=== PATIENT | male | born 1950 | race Caucasian/White ===

== ENCOUNTER 2017-04-19 13:03 | Outpatient (RCR) | payer MEDICARE, SELFPAY | END 2017-04-19 13:04 | LOC: DC 13:03 | PROVIDERS: Family Provider Internal Medicine; PCP Internal Medicine; Visit Provider Nurse Practitioner | DX: E11.65 Type 2 diabetes mellitus with hyperglycemia (principal); Z71.3 Dietary counseling and surveillance | CPT/HCPCS: G0109 ==

== ENCOUNTER → 2020-03-04 07:51 | Outpatient (CLI) | payer MEDICARE, SELFPAY ==
--- NOTE | 2020-03-04 07:54 | US_ITS ---
STUDY: ABDOMINAL ULTRASOUND REASON FOR EXAM: Male, 69 years old. BLOATING TECHNIQUE: Transabdominal ultrasound was performed with real-time and static solano scale imaging. TECHNICAL QUALITY: Adequate. COMPARISON: None. FINDINGS: Liver: The liver measures 18.7 cm. There is increased echogenicity consistent with fatty infiltration. The bile ducts are within normal limits. There is hepatic color flow. The direction of portal flow is hepatopetal. There is no demonstrated mass lesion. Portal vein measurement: Gallbladder: Normal distended gallbladder. The gallbladder wall measures 2.8 mm. There is a negative sonographic Becker''s sign. There is no pericholecystic fluid. There is a solitary echogenic gallstone within the gallbladder. Common Bile Duct (C.B.D.): The common bile duct measures 5.1 mm. Pancreas: Normal size of the head, body and tail of the pancreas. There is increased echogenicity of the pancreas. There is no demonstrated pancreatic mass or cyst. Spleen: Normal size of the spleen. The spleen measures 11.4 cm. Right Kidney: Normal size of the right kidney. The right kidney measures 10.6 x 5.4 x 6.2 cm. Normal renal cortex. The right cortex measures 1.9 cm. There is no demonstrated renal mass or cyst. There is no right hydronephrosis, there is a nonobstructing 5 mm stone Left Kidney: Normal size of the left kidney. The left kidney measures 11.2 x 4.6 x 5.4 cm. Normal renal cortex. The left cortex measures 2.0 cm. There is no demonstrated renal mass or cyst. There is no left hydronephrosis. Aorta: Tapers normally I.V.C.: The IVC is patent. There is no ascites. US/Abdomen Complete IMPRESSION: Diffuse fatty infiltration of the liver, no discrete lesion Cholelithiasis, no sonographic evidence of acute cholecystitis Nonobstructing right nephrolithiasis Echogenic pancreas Electronically Signed: Sae Nagel MD at 17:00 EST , Service support ,
== END ==
PROVIDERS: PCP Internal Medicine; Referring Provider Internal Medicine; Visit Provider Internal Medicine
DX: R14.0 Abdominal distension (gaseous) (principal)
CPT/HCPCS: 76700

== ENCOUNTER 2020-04-21 06:20 | Day surgery (SDC) | payer MEDICARE, SELFPAY ==
[2020-03-30 13:27] VITALS: BMI 34.9
[2020-04-21] VITALS (8 sets, daily range): BP systolic 92–132; BP diastolic 68–88; PULSE 70–87; RESP 16; TEMP 36.1–36.3; O2SAT 90–95; BMI 35.1
[2020-04-21] MEDS: Lactated Ringers 1,000 ML 100 ML IV (06:49)
--- NOTE | 2020-04-21 06:54 | PCM.HP.BLA ---
Problem List (1) Anemia Status: Acute Qualifiers: Anemia type: unspecified type Qualified Code(s): D64.9 - Anemia, unspecified (2) Upper abdominal pain Status: Acute History and Physical Date of Admission: 04/21/20 Intake Vital Signs 03/30/20 Height 6 ft 03/30/20 Weight: 257 lb 4 oz Intake Visit Reasons: PHONE VISIT, CSCOPE, ANEMIA, BLOATED ABDOMEN Chief Complaint: ANEMIA, ABD BLOATING, +GALLSTONES Strain Technician Required: No Is patient in pain?: No Allergies No Known Allergies Allergy (Verified 03/30/20 13:24) Medications amlodipine 5 mg tablet 5 mg PO DAILY tab 03/30/20 [History Confirmed 03/30/20] atorvastatin 10 mg tablet 10 mg PO QHS tab 03/30/20 [History Confirmed 03/30/20] empagliflozin 25 mg tablet 25 mg PO DAILY tab 03/30/20 [History Confirmed 03/30/20] glimepiride 4 mg tablet 4 mg PO BID tab 03/30/20 [History Confirmed 03/30/20] lisinopril 20 mg-hydrochlorothiazide 25 mg tablet 1 tab PO BID tab 03/30/20 [History Confirmed 03/30/20] metformin 500 mg tablet,extended release 24 hr 1,500 mg PO DAILY tab 03/30/20 [History Confirmed 03/30/20] omeprazole 40 mg capsule,delayed release 40 mg PO DAILY #60 cap 03/30/20 [Rx Confirmed 03/30/20] sitagliptin 100 mg tablet 100 mg PO DAILY tab 03/30/20 [History Confirmed 03/30/20] [facility] Medical History (Updated 03/30/20 @ 13:22 by Katina Reza) Anemia (Acute) Gallstones (Acute) Hypercholesteremia (Acute) Obesity (Acute) PVC (premature ventricular contraction) (Acute) CKD (chronic kidney disease) (Chronic) Surgical History (Updated 03/30/20 @ 13:22 by Katina Reza) History of mandibular surgery (Acute) Family History (Updated 03/30/20 @ 13:23 by Katina Reza) Father Heart disease Mother CVA (cerebral vascular accident) HPI HPI Chief Complaint: ANEMIA, ABD BLOATING, +GALLSTONES Details: Patient was informed that this visit will be billed to patient. This visit was conducted during COVID-19 pandemic. PHUONG VILLARREAL, is a 69 M who presents to the office today for Abdominal bloating and anemia. The patient reportedly has anemia and has never had a screening colonoscopy. He is also having a lot of abdominal bloating. Patient is not having any nausea or vomiting and he is not having any localized abdominal pain. He reports cutting dairy out of his diet but that did not help. He does not report any acid reflux and does not take a PPI. ROS Const Constitutional: Positive for fatigue; no anorexia, body ache, chills, excessive sweating, fever(s), frequent falls, headache(s), decreased energy, malaise, night sweats, snoring, weakness, weight change, sleep problems, abnormal sleep pattern, change in appetite or other Eyes Eyes: No visual disturbances ENT ENT: Positive for other (DM); no abnormal hearing, ear pain, ear discharge, ear pressure, hearing loss, tinnitus, dizziness/vertigo, balance problems, nosebleed/epistaxis, nasal congestion, nasal obstruction, nose pain, sinus pressure, sinus pain, nasal discharge, post nasal drip, headache(s), facial pain, dental pain, dry mouth, difficulty swallowing, bad breath, hoarseness, lip swelling, mouth lesions, mouth pain, neck pain, sore throat, tongue swelling or throat swelling Resp Respiratory: No cough, change in phlegm color, chest congestion, excessive phlegm production, hemoptysis, pain on inspiration, shortness of breath, pain with cough, snoring, stridor, wheezing or other Cardio Cardiology: Positive for other (PVC, HTN); no chest pain at rest, chest pain with exertion, leg pain with exertion, excessive sweating, shortness of breath, dyspnea on exertion, generalized swelling, irregular heart rhythm, lightheadedness, orthopnea, radiating jaw, neck or arm pain, fast heart rate, slow heart rate or palpitations Gastro GI: Positive for bloating; no abdominal pain, belching, change in bowel habits, change in stool character, coffee ground emesis, constipation, cramping, diarrhea, heartburn, difficulty swallowing, feeling full early, excessive flatus, incontinent of stools, Vomiting blood/hematemesis, blood in stool, loose stools, Black,tarry stools, nausea/dyspepsia, pain with swallowing, vomiting or other Musc Musculoskeletal: No abnormal walking, joint pain, back pain, deformity, joint swelling, limited range of motion, loss of height, muscle cramps, muscle weakness, decreased muscle mass, body aches, neck pain, numbness, radiating pain into limb, stiffness, tingling or other Neuro Neurology: No abnormal walking, abnormal hearing, abnormal movements, abnormal speech, behavioral changes, confusion, unsteady gait/balance, dizziness, weakness, frequent falls, headache(s), lack of coordination, loss of vision, memory loss, numbness, tingling, visual disturbances, restless legs, fainting, tremor(s) or other Psych Psychiatric: No abnormal sleep pattern, No lack of enjoyment, No anxiety, No behavioral changes, No change in appetite, No confusion, No depression, No difficulty concentrating, No hopelessness, No irritability, No memory loss, No mood swings, No panic attacks, No paranoia, No Thoughts of harming yourself/Others, No hallucinations, No other Endo Endocrine: Positive for fatigue and other (DM); no change in body appearance, cold intolerance, excessive sweating, flushing, heat intolerance, increased thirst/drinking, increased hunger or increased urination Aller/Imm Allergy/Immunologic: No lip swelling, throat swelling, tongue swelling or wheezing Antolin/Lymp Hematologic/Lymphatic: No easy bleeding, easy bruising, enlarged lymph nodes or other Exam Const General: cooperative, comfortable Chest Chest palpation & inspection: normal inspection of the chest Resp Effort & Inspection: normal respiratory effort Cardio Rate: regular rate Rhythm: regular rhythm GI Inspection: normal to inspection Palpation: soft, nontender Musc Musculoskeletal: No muscle weakness Details: Details:: Exam was limited due to phone visit with no video. Quality Reporting Medication Reconciliation ([facility] 68) amlodipine 5 mg PO DAILY atorvastatin 10 mg PO QHS empagliflozin 25 mg PO DAILY glimepiride 4 mg PO BID lisinopril-hydrochlorothiazide 20-25 mg 1 tab PO BID metformin ER 1,500 mg PO DAILY omeprazole 40 mg PO DAILY sitagliptin 100 mg PO DAILY Assessment & Plan Problems 1. Bloated abdomen R14.0 Plan The patient has abdominal bloating and feels full. The patient may be having gastritis or peptic ulcer disease symptoms. I recommend starting the patient on a PPI and I will perform an EGD and colonoscopy. The patient has anemia and is never had a colonoscopy in the past. If the PPI does not help in the EGD and colonoscopy are normal I will pursue laparoscopic cholecystectomy as the patient does have cholelithiasis. I explained endoscopy in detail to the patient. I explained the risks including but not limited to stroke or heart attack with anesthesia, perforation of the GI tract, bleeding, infection. I explained that any of these could necessitate further emergency surgery. The patient understands and all questions were answered sufficiently. The patient wishes to proceed with procedure. We discussed the current risks associated with COVID-19. While it is understood that there is a community spread of COVID-19, the risk of marci COVID-19 while at [facility] ([facility]) is very low; however, the risk cannot be completely mitigated because of the community spread of the disease. We discussed in detail the risk of exposure to and/or potential harm posed by the COVID-19 virus with having a surgery/procedure at this time versus the risk of delaying the surgery/procedure. It is not possible to know either the risk of delaying the surgery or procedure or chance of getting an infection with perfect accuracy, but a joint decision was made to proceed at this time with the scheduled surgery/procedure as indicated on the consent form. Patient was notified that we will need to comply with any screening or testing [facility] wishes to perform or that surgery may be delayed for any positive results. Bret Almendarez MD Pager: [facility] [address] [place] [address], [address] [place] [phone] Office: I have seen and reexamined the patient. no changes since prior exam.
[2020-04-21 07:06] LABS: Bedside Glucose 165 mg/dL (70-110)
--- NOTE | 2020-04-21 07:30 | IMM_PTH ---
PATIENT: PHUONG VILLARREAL LOC: EN U#:[id number] AGE/SX: 69/M ROOM: RE04/21/[address]: Dr. Bret Almendarez MD : 1950 BED: DIS: 04/21/2020 SPEC #: [id number] RECD: 04/21/20 10:40 STATUS: BOZENA REQ #: [id number] DAYANA: 04/21/20 07:[address]: Bret Almendarez DEPT: IMMUNOHISTOCHEMISTRY RECD BY: Madie Contreras ENTERED: 04/21/20 10:41 SP TYPE: IMMUNO OTHR DR: Dr. Leeanna Alex DO Tissues: A - Stomach, NOS Procedures: H Pylori (initial) PHYSICIAN & INSTITUTION [place] [address] SPECIMEN INFORMATION: Tissue Source: A - Antral biopsy Clinical Info: Abdominal pain, anemia Specimen Number: [id number] CPT code: 18204 METHODOLOGY: Deparaffinized sections of prefer/formalin-fixed tissue or PAP/DQ stained slides are incubated with monoclonal/polyclonal antibodies/oligonucleotide probes. Localization is made via biotin free immunoperoxidase method. Appropriate controls are performed and reacted as expected. Results on target cell population are indicated in the following table: RESULTS: ANTIBODY / CLONE RESULT Block A H Pylori (polyclonal) negative These tests were developed and their performance characteristics determined by [facility]. They may not have been cleared or approved by the U.S. Food and Drug Administration. The FDA has determined that such clearance or approval is not necessary. INTERPRETATION: A. Antral biopsy: Negative for Helicobacter pylori organisms. AM:jihan 04/22/2020
--- NOTE | 2020-04-21 07:30 | EGD_PTH ---
PATIENT: PHUONG VILLARREAL LOC: EN U#:[id number] AGE/SX: 69/M ROOM: RE04/21/[address]: Dr. Bret Almendarez MD : 1950 BED: DIS: 04/21/2020 SPEC #: [id number] RECD: 04/21/20 09:43 STATUS: BOZENA RESergio #: [id number] DAYANA: 04/21/20 07:[address]: Bret Almendarez DEPT: SURGICAL PATHOLOGY RECD BY: Yulissa Astudillo ENTERED: 04/21/20 10:21 SP TYPE: EGD BIOPSY OT DR: Dr. Leeanna Alex DO Tissues: A - Gastric mucous membrane B - Gastric mucous membrane C - Rectum, NOS Procedures: Special Stain Group II Surgery Specimen Level IV Alcian Blue/PAS (control) HEADER OPERATION: Colonoscopy, E[place] PRE-OP DIAGNOSIS: Abdominal pain, anemia TISSUE SUBMITTED: A - Antral biopsy for H. pylori and pathology, B - GE junction biopsy, C - Rectum polyp MICROSCOPIC DIAGNOSIS A. Gastric antrum, biopsy: Chronic gastritis. See comment. B. Gastroesophageal junction, biopsy: Mild chronic inflammation. Focal changes of reflux. No evidence of goblet cell metaplasia. See comment. C. Rectal polyp, biopsy: Tubular adenoma. AM:jihan 04/22/2020 COMMENT A. The results of immunohistochemistry for Helicobacter pylori will be reported separately ([id number]). B. Alcian blue/PAS stain with matched control supports the above diagnosis. MICROSCOPIC DESCRIPTION Slides are reviewed. GROSS DESCRIPTION A - Received in fixative is one container labeled with the patient's name and designated antral biopsy. The specimen consists of multiple irregular fragments of light bledsoe soft tissue that in aggregate measure 0.6 x 0.2 x 0.1 cm. The specimen is totally submitted in one cassette. B - Received in fixative is one container labeled with the patient's name and designated GE junction biopsy. The specimen consists of one irregular fragment of light bledsoe soft tissue that measures 0.3 x 0.3 x 0.1 cm. The specimen is totally submitted in one cassette. C - Received in fixative is one container labeled with the patient's name and designated rectum polyp. The specimen consists of a bledsoe-pink polyp measuring 0.5 x 0.5 x 0.3 cm. The specimen is totally submitted in one cassette. / SJ:rg 04/21/20 TC:3 CPT: 20483 x3, 28704
--- NOTE | 2020-04-21 07:53 | OP.CCLET_ITS ---
04/21/2020 Leeanna Alex [address] [place] [address] Re : Upper GI endoscopy procedure for Casimiro Rahman Dear Dr. Alex This procedure was performed on Tuesday, April 21, 2020. My impressions and recommendations are as follows: Impressions : - Non-severe reflux esophagitis. Biopsied. - Normal stomach. - Normal examined duodenum. - Biopsies were taken with a cold forceps for Helicobacter pylori testing. Recommendations : - Discharge patient to home. - Resume previous diet. - Continue present medications. - Await pathology results. - Return to my office in 1 week. My findings are described in the full procedure note, which is enclosed. If I can be of further assistance, please feel free to contact me at Doctor phone number(s): , Work: . Sincerely, Bret Almendarez MD 04/21/2020 7:52:35 AM This report has been signed electronically.
--- NOTE | 2020-04-21 07:53 | OP.EGD_ITS ---
Patient Name: Casimiro Rahman Procedure Date: 04/21/2020 7:01 AM Date of : 1950 Age: 69 Procedure: Upper GI endoscopy Indications: Upper abdominal pain, Iron deficiency anemia Providers: Bret Almendarez MD Referring MD: Leeanna Alex Medicines: Monitored Anesthesia Care Patient Profile: This is a 69 year old male. Refer to note in patient chart for documentation of history and physical. Complications: No immediate complications. Estimated blood loss: Minimal. Procedure: Pre-Anesthesia Assessment: - Prior to the procedure, a History and Physical was performed, and patient medications and allergies were reviewed. The patient's tolerance of previous anesthesia was also reviewed. The risks and benefits of the procedure and the sedation options and risks were discussed with the patient. All questions were answered, and informed consent was obtained. Prior Anticoagulants: The patient has taken no previous anticoagulant or antiplatelet agents. After reviewing the risks and benefits, the patient was deemed in satisfactory condition to undergo the procedure. After obtaining informed consent, the endoscope was passed under direct vision. Throughout the procedure, the patient's blood pressure, pulse, and oxygen saturations were monitored continuously. The Endoscope was introduced through the mouth, and advanced to the third part of duodenum. The upper GI endoscopy was accomplished without difficulty. The patient tolerated the procedure well. Scope In: 7:27:25 AM Scope Out: 7:29:50 AM Total Procedure Duration Time 0 hours 2 minutes 25 seconds Findings: Non-severe esophagitis with no bleeding was found at the gastroesophageal junction. Biopsies were taken with a cold forceps for histology. The stomach was normal. The examined duodenum was normal. Biopsies were taken with a cold forceps in the gastric antrum for Helicobacter pylori testing. Impression: - Non-severe reflux esophagitis. Biopsied. - Normal stomach. - Normal examined duodenum. - Biopsies were taken with a cold forceps for Helicobacter pylori testing. Recommendation: - Discharge patient to home. - Resume previous diet. - Continue present medications. - Await pathology results. - Return to my office in 1 week. Procedure Code(s): --- Professional --- 99671, Esophagogastroduodenoscopy, flexible, transoral; with biopsy, single or multiple Diagnosis Code(s): --- Professional --- K21.0, Gastro-esophageal reflux disease with esophagitis R10.10, Upper abdominal pain, unspecified D50.9, Iron deficiency anemia, unspecified CPT copyright 2017 [employer]. All rights reserved. The codes documented in this report are preliminary and upon fur weigher review may be revised to meet current compliance requirements. Bret Almendarez MD 04/21/2020 7:52:35 AM This report has been signed electronically. Number of Addenda: 0 Note Initiated On: 04/21/2020 7:01 AM
--- NOTE | 2020-04-21 07:54 | OP.CCLET_ITS ---
04/21/2020 Leeanna Alex [address] [place] [address] Re : Colonoscopy procedure for Casimiro Rahman Dear Dr. Alex This procedure was performed on Tuesday, April 21, 2020. My impressions and recommendations are as follows: Impressions : - One polyp in the rectum, removed with a hot snare. Resected and retrieved. - The examination was otherwise normal on direct and retroflexion views. Recommendations : - Discharge patient to home. - Resume previous diet. - Continue present medications. - Await pathology results. - Repeat colonoscopy in 5 years for surveillance. My findings are described in the full procedure note, which is enclosed. If I can be of further assistance, please feel free to contact me at Doctor phone number(s): , Work: . Sincerely, Bret Almendarez MD 04/21/2020 7:53:53 AM This report has been signed electronically.
--- NOTE | 2020-04-21 07:54 | OP.COLON_ITS ---
Patient Name: Casimiro Rahman Procedure Date: 04/21/2020 7:30 AM Date of : 1950 Age: 69 Procedure: Colonoscopy Indications: Screening for colorectal malignant neoplasm Providers: Bret Almendarez MD Referring MD: Leeanna Alex Medicines: Monitored Anesthesia Care Patient Profile: This is a 69 year old male. Refer to note in patient chart for documentation of history and physical. Last Colonoscopy: more than 10 years ago. Complications: No immediate complications. Procedure: Pre-Anesthesia Assessment: - Prior to the procedure, a History and Physical was performed, and patient medications and allergies were reviewed. The patient's tolerance of previous anesthesia was also reviewed. The risks and benefits of the procedure and the sedation options and risks were discussed with the patient. All questions were answered, and informed consent was obtained. Prior Anticoagulants: The patient has taken no previous anticoagulant or antiplatelet agents. After reviewing the risks and benefits, the patient was deemed in satisfactory condition to undergo the procedure. After I obtained informed consent, the scope was passed under direct vision. Throughout the procedure, the patient's blood pressure, pulse, and oxygen saturations were monitored continuously. The colonoscope was introduced through the anus and advanced to the cecum, identified by appendiceal orifice and ileocecal valve. The colonoscopy was performed without difficulty. The patient tolerated the procedure well. The quality of the bowel preparation was good. Scope In: 7:32:36 AM Scope Withdrawal Time 0 hours 5 minutes 34 seconds Scope Out: 7:46:26 AM Total Procedure Duration Time 0 hours 13 minutes 50 seconds Findings: A polyp was found in the rectum. The polyp was removed with a hot snare. Resection and retrieval were complete. Verification of patient identification for the specimen was done. Estimated blood loss was minimal. The exam was otherwise without abnormality on direct and retroflexion views. Impression: - One polyp in the rectum, removed with a hot snare. Resected and retrieved. - The examination was otherwise normal on direct and retroflexion views. Recommendation: - Discharge patient to home. - Resume previous diet. - Continue present medications. - Await pathology results. - Repeat colonoscopy in 5 years for surveillance. Procedure Code(s): --- Professional --- 12877, Colonoscopy, flexible; with removal of tumor(s), polyp(s), or other lesion(s) by snare technique Diagnosis Code(s): --- Professional --- Z12.11, Encounter for screening for malignant neoplasm of colon K62.1, Rectal polyp CPT copyright 2017 [employer] [place] [employer]. All rights reserved. The codes documented in this report are preliminary and upon product support specialist review may be revised to meet current compliance requirements. Bret Almendarez MD 04/21/2020 7:53:53 AM This report has been signed electronically. Number of Addenda: 0 Note Initiated On: 04/21/2020 7:30 AM
== END 2020-04-21 08:51 | disposition home or self-care (01) ==
LOC: EN 06:20 → AC 06:21
PROVIDERS: PCP Internal Medicine; Referring Provider Internal Medicine; Visit Provider Surgery
PROC: 0DJD8ZZ Inspection of Lower Intestinal Tract, Via Natural or Artificial Opening Endoscopic (ICD-10-PCS; CPT 45378; principal; 2020-04-21 07:25)
DX: Z12.11 Encounter for screening for malignant neoplasm of colon (principal); D12.8 Benign neoplasm of rectum; K21.00 Gastro-esophageal reflux disease with esophagitis, without bleeding; R10.10 Upper abdominal pain, unspecified; D50.9 Iron deficiency anemia, unspecified; Z79.84 Long term (current) use of oral hypoglycemic drugs; N18.9 Chronic kidney disease, unspecified; R14.0 Abdominal distension (gaseous)
CPT/HCPCS: 43239; 45385; 82962; 87426; 88305; 88313; 88342; C9803; J7120; J2405

== ENCOUNTER → 2020-05-04 10:17 | Outpatient (CLI) | payer MEDICARE, SELFPAY ==
[2020-04-21 06:49] VITALS: BMI 35.1
--- NOTE | 2020-05-04 10:18 | NM_ITS ---
CLINICAL: 69-year-old diabetic male with reported history of abdominal bloating. SEMI-SOLID PHASE 99m Tc SULFUR COLLOID GASTRIC EMPTYING STUDY COMPARISON: None available FINDINGS: The patient was administered approximately 1.0 mCi of 99m Tc sulfur colloid mixed with oatmeal and consumed per os. Image acquisitions in the anterior-posterior projections for a total of 60 minutes. There is prompt visualization of the stomach. There is no gastroesophageal reflux identified. The T ? linear fit was calculated to be 30.96 minutes, (Normal: 12-56 minutes). NM/Gastric Emptying Study IMPRESSION: 1. NORMAL 99m Tc sulfur colloid semi-solid phase (oatmeal) gastric emptying imaging examination. A. There is normal and preserved semi-solid phase gastric emptying compared to normal controls. (Victor M et al, J Nucl Med Tech 38: 186, 2010). Electronically Signed: Brant Kent DO at 22:27 EST Tel , Service support ,
== END ==
PROVIDERS: PCP Internal Medicine; Referring Provider Internal Medicine; Visit Provider Internal Medicine
DX: R14.0 Abdominal distension (gaseous) (principal)
CPT/HCPCS: 78264; A9541

== ENCOUNTER → 2020-05-25 14:48 | Outpatient (CLI) | payer MEDICARE, SELFPAY ==
[2020-05-18 09:17] VITALS: BMI 36.4
--- NOTE | 2020-05-25 14:50 | CT_ITS ---
STUDY: CT ABDOMEN AND PELVIS WITHOUT CONTRAST REASON FOR EXAM: Male, 69 years old. ABD PAIN AND BLOATING RADIATION DOSAGE (If Supplied By Facility): CTDIvol = ( 21.67 ) mGy, DLP = ( 1255.98 ) mGycm TECHNIQUE: Transaxial images were obtained from the dome of the diaphragm to the symphysis pubis without oral contrast, and without intravenous contrast. Sagittal and coronal images were reconstructed. Individualized dose optimization techniques were used for this CT. COMPARISON: None. FINDINGS: Mild degree of bibasilar bronchiectasis. The visualized portions of the heart are within normal limits. Normal liver. There are multiple small gallstones. Normal spleen. Normal pancreas. Normal bilateral adrenal glands. Normal right kidney. Normal left kidney. There is a small hiatal hernia. Normal small intestine. There are multiple colonic diverticula consistent with diverticulosis. The appendix is visualized and appears normal. There is diffuse atherosclerotic calcification of the abdominal aorta and its major visceral branches, without a demonstrated aneurysm. Normal inferior vena cava. Normal retroperitoneum. Normal urinary bladder. There are prostatic calcifications. There is a small umbilical hernia containing fat. Small right inguinal hernia containing fat. There are diffuse degenerative changes of the visualized lumbar spine. CT/Abdomen/Pel W ORAL Cont Only IMPRESSION: Sigmoid diverticulosis. Multiple small gallstones. Electronically Signed: Jf Fritz MD at 15:49 EST , Service support ,
[2020-05-25 15:06] LABS: CREATININE FINGERSTICK 2.2 mg/dL (0.70-1.30)
== END ==
PROVIDERS: PCP Internal Medicine; Referring Provider Surgery; Visit Provider Surgery
DX: R10.10 Upper abdominal pain, unspecified (principal)
CPT/HCPCS: 74176

== ENCOUNTER → 2020-08-25 15:56 | Outpatient (CLI) | payer MEDICARE, SELFPAY ==
[2020-05-18 09:17] VITALS: BMI 36.4
--- NOTE | 2020-08-25 15:58 | RAD_ITS ---
STUDY: X-RAY - ABDOMEN/PELVIS REASON FOR EXAM: Male, 69 years old. ABDOMINAL PAIN TECHNIQUE: AP supine and upright views of the abdomen and pelvis. COMPARISON: CT scan 05/25/2020. FINDINGS: Normal visualized lung bases. There is an unremarkable bowel gas pattern. There is no demonstrated free abdominal air. There is cholelithiasis. The visualized liver, spleen and kidneys are grossly normal in size and morphology. Normal soft tissue structures. There are diffuse degenerative changes of the visualized lumbar spine. RAD/Abdomen Single View IMPRESSION: No definite acute or significant abnormality seen. Electronically Signed: Heladio Ca MD at 16:32 EDT , Service support ,
== END ==
PROVIDERS: PCP Internal Medicine; Referring Provider Internal Medicine Gastroenterology; Visit Provider Internal Medicine Gastroenterology
DX: R14.0 Abdominal distension (gaseous) (principal)
CPT/HCPCS: 74018

== ENCOUNTER → 2021-02-17 10:52 | Outpatient (CLI) | payer MEDICARE, SELFPAY ==
[2021-02-17 11:04] LABS: Potassium 5.2 mmol/L (3.5-5.1)
== END ==
PROVIDERS: PCP Internal Medicine; Visit Provider Internal Medicine
DX: E87.5 Hyperkalemia (principal)
CPT/HCPCS: 84132

== ENCOUNTER → 2021-02-22 15:06 | Outpatient (CLI) | payer MEDICARE, SELFPAY ==
[2021-02-22 17:52] LABS: Potassium 4.8 mmol/L (3.5-5.1)
== END ==
PROVIDERS: PCP Internal Medicine; Visit Provider Internal Medicine
DX: E87.5 Hyperkalemia (principal)
CPT/HCPCS: 84132

== ENCOUNTER 2021-06-09 14:54 | Outpatient (CLI) | payer MEDICARE, SELFPAY ==
[2021-06-09 15:27] LABS: Potassium 4.9 mmol/L (3.5-5.1)
== END 2021-06-09 23:59 | disposition home or self-care (01) ==
LOC: LABSPEC 14:55
PROVIDERS: PCP Internal Medicine; Visit Provider Internal Medicine
DX: E87.5 Hyperkalemia (principal)
CPT/HCPCS: 84132

== ENCOUNTER 2021-07-19 15:11 | Outpatient (CLI) | payer MEDICARE, SELFPAY ==
[2021-07-19 15:34] VITALS: BP 131/85; PULSE 91; RESP 16; TEMP 37.3; O2SAT 92; BMI 35.6
--- NOTE | 2021-07-19 16:40 | CT_ITS ---
STUDY: CTA CHEST REASON FOR EXAM: Male, 70 years old. ELEVATED DDIMER Radiation Dose (provided by facility) CTDIvol (NA ) mGy, DLP ( NA) mGy-cm TECHNIQUE: The examination was performed with the intravenous administration of IV 100mL Isovue-370. Post-processing of the angiographic images was performed, with multiplanar reformation and 3D reconstruction. Individualized dose optimization techniques were used for this CT. COMPARISON: None. FINDINGS: Tubes and lines: 1. No life-support noted. CTA: PULMONARY ARTERIES: There is normal configuration and contrast opacification of pulmonary outflow tract, main pulmonary arteries, segmental and intersegmental pulmonary arteries bilaterally without evidence of intraluminal filling defects. AORTIC ARCH: Aortic arch has normal configuration, scattered areas of bulky soft plaque and subtle areas of ulceration suspected. No dissection or aneurysmal dilatation. Normal appearance of the origin of the great vessels. HEART: Cardiac contour is normal. No evidence pericardial effusion. Moderate coronary vascular calcifications present. CT CHEST: LUNGS: [Unremarkable. No mass. No consolidation. PLEURAL SPACES: Unremarkable, no effusion or pneumothorax.. MEDIASTINUM AND LYMPH NODES: Multiple scattered lymph nodes are present within the mediastinum or hilar regions, largest is in the RIGHT hilum measuring 2.1 x 1.1 cm in size.. BONES: Unremarkable. Diffuse thoracic spondylosis is noted. No acute destructive bony process. ABDOMEN: Cholelithiasis noted. Remaining visualized upper abdomen has normal appearance. Other: None IMPRESSIONS: 1. No CTA evidence of pulmonary embolism. 2. No CTA evidence of aortic aneurysm or dissection. Diffuse soft plaque noted throughout the aorta, scattered areas of ulceration noted. No dissection or aneurysmal dilatation. 3. Normal CT appearance of the heart and pericardium. Diffuse coronary vascular calcifications. 4. No focal infiltrate consolidation or effusion noted. Scattered noncalcified lymph nodes noted within the mediastinum and hilar regions bilaterally. 5. Cholelithiasis incidentally noted. Electronically Signed: Brant Bonilla MD at 17:32 EDT , CT/CTA Chest W/WO Contrast
== END 2021-07-19 23:59 | disposition home or self-care (01) ==
LOC: CT 15:11
PROVIDERS: PCP Internal Medicine; Visit Provider Internal Medicine
DX: R79.89 Other specified abnormal findings of blood chemistry (principal)
CPT/HCPCS: 71275; J7040

== ENCOUNTER 2021-07-19 15:13 | Outpatient (CLI) | payer MEDICARE, SELFPAY ==
[2021-07-19 10:49] LABS: Hematocrit 37.1 % (40-54); Hemoglobin 12.1 g/dL (13.0-16.5); Mean Corp Hgb Conc 32.6 g/dL (32-36); Mean Corpuscular Hgb 30.5 pg (27.0-32.0); Mean Corpuscular Volume 93.5 fL (80-94); Mean Platelet Vol. 10.7 fl (6.2-12.0); Platelet Count 243 K/mm3 (150-450); RBC Distribution Width CV 12.5 % (11.6-14.6); RBC Distribution Width SD 42.8 fl (35.1-43.9); Red Blood Count 3.97 M/mm3 (4.6-6.2); White Blood Count 9.6 K/mm3 (4.4-11.0)
[2021-07-19 11:15] LABS: AST(SGOT) 14 U/L (15-37); Alanine Aminotransfer ALT/SGPT 31 U/L (16-61); Albumin, Serum 3.8 g/dL (3.2-5.0); Alkaline Phosphatase 43 U/L (45-117); Anion Gap 3 (5-15); BUN 45 mg/dL (7-18); BUN/Creat Ratio 18.2 RATIO (10-20); Calcium,Total 9.4 mg/dL (8.5-10.1); Chloride 108 mmol/L (98-107); Creatinine, Serum 2.47 mg/dL (0.70-1.30); EST Glomerular Filtration Rate 28 mL/min (>60); Est Glom Filt Rate - Afr Amer 33 mL/min (>60); Globulin 3.9 g/dL (2.2-4.2); Glucose 191 mg/dL (74-106); Potassium 5.3 mmol/L (3.5-5.1); Protein, Total 7.7 g/dL (6.4-8.2); Sodium Level 140 mmol/L (136-145)
[2021-07-19 12:51] LABS: D-Dimer Quantitative (DVT/PE) 0.89 FEU/ug/m (0.27-0.49)
--- NOTE | 2021-07-19 15:28 | US_ITS ---
INDICATION: CHRONIC KIDNEY DISEASE EXAMINATION: Ultrasound US Kidney(s) complete (eg, kidneys and bladder) TECHNIQUE: Mejia scale and color doppler images were obtained of the kidneys. COMPARISON: None. FINDINGS: RIGHT KIDNEY: 10.4 x 5.6 x 5.1 cm. There is no hydronephrosis. No shadowing calculus, focal lesion or perinephric collection is demonstrated. Renal cortex measures 1.5 cm. LEFT KIDNEY: 10.2 x 4.9 x 4.8 cm.. There is no hydronephrosis. No shadowing calculus, focal lesion or perinephric collection is demonstrated. Renal cortex measures 1.1 cm. URINARY BLADDER: Bladder has normal configuration. Distended volume estimated at 308 mL. Ureteral jets are not visualized. Bladder wall has normal appearance. US/Kidney and Bladder IMPRESSION: 1. Normal sonographic appearance of both kidneys without solid or cystic masses, calcifications or obstructive uropathy. 2. Bladder is moderately distended with a volume of 308 mL. 3. Ureteral jets are not visualized. Bladder wall is normal appearance. Electronically Signed: Brant Bonilla MD at 1:48 EDT ,
== END 2021-07-19 23:59 | disposition home or self-care (01) ==
LOC: US 15:14
PROVIDERS: PCP Internal Medicine; Visit Provider Internal Medicine
DX: N18.30 Chronic kidney disease, stage 3 unspecified (principal); R09.02 Hypoxemia
CPT/HCPCS: 71275; 76770; 80053; 85027; 85379; J7040

== ENCOUNTER 2021-07-23 11:43 | Outpatient (CLI) | payer MEDICARE, SELFPAY ==
[2021-07-23 12:03] LABS: Anion Gap 10 (5-15); BUN 37 mg/dL (7-18); BUN/Creat Ratio 17.5 RATIO (10-20); Chloride 108 mmol/L (98-107); Creatinine, Serum 2.12 mg/dL (0.70-1.30); EST Glomerular Filtration Rate 33 mL/min (>60); Est Glom Filt Rate - Afr Amer 40 mL/min (>60); Glucose 213 mg/dL (74-106); Potassium 4.8 mmol/L (3.5-5.1); Sodium Level 138 mmol/L (136-145)
== END 2021-07-23 23:59 | disposition home or self-care (01) ==
LOC: LABSPEC 11:44
PROVIDERS: PCP Internal Medicine; Referring Provider Internal Medicine; Visit Provider Internal Medicine
DX: E87.5 Hyperkalemia (principal)
CPT/HCPCS: 80048

== ENCOUNTER → 2021-07-27 | Outpatient (CLI) | payer MEDICARE, SELFPAY ==
[2021-07-27 09:22] VITALS: PULSE 105; PULSE 69; PULSE 83; PULSE 91; PULSE 95; PULSE 97; PULSE 98; O2SAT 88; O2SAT 89; O2SAT 92; O2SAT 94; O2SAT 95
--- NOTE | 2021-07-27 09:29 | CPS ---
HE TOLD ME THAT HE IS TO WEAR O2 AT HOME BU USUALLY DOESN'T. UPON ARRIVAL SPO2 WAS 95% BEFORE HE STARTED TO WALK.
--- NOTE | 2021-07-28 08:22 | PCM.PSN.6M ---
PSN 6 Minute Walk Test 6 Minute Walk Test 6 Minute Walk Test: 6 Minute Walk Test PSN:6-Minute Walk Test Start: 07/27/21 09:21 Freq: Status: Active Protocol: [id number] Document 07/27/21 09:22 FR (Rec: 07/27/21 09:32 FR [id number]) 6 Minute Walk Test Date Performed 07/27/21 Time Performed 08:30 Height 6 ft Weight: 119.295 kg Weight in Pounds 263.[address]: Dre Morocho Assistive device used: None Pre-test Oxygen Flow Rate (L/min) (L/min) 2 Oxygen Delivery Method Nasal Cannula Pulse Ox (%) 95 Pulse Rate (60-100 beats/min) 69 Dyspnea Alejandro Scale (0-10) 8 Exertion Alejandro Scale (6-20) 6 1st minute Oxygen Flow Rate (L/min) (L/min) 2 Pulse Ox (%) 92 2nd minute Oxygen Flow Rate (L/min) (L/min) 2 Oxygen Delivery Method Nasal Cannula Pulse Ox (%) 89 Pulse Rate (60-100 beats/min) 91 3rd minute Oxygen Flow Rate (L/min) (L/min) 2 Oxygen Delivery Method Nasal Cannula Pulse Ox (%) 89 Pulse Rate (60-100 beats/min) 97 4th minute Oxygen Flow Rate (L/min) (L/min) 2 Pulse Ox (%) 88 Pulse Rate (60-100 beats/min) 98 5th minute Oxygen Flow Rate (L/min) (L/min) 2 Oxygen Delivery Method Nasal Cannula Pulse Ox (%) 88 Pulse Rate (60-100 beats/min) 105 H 6th minute Oxygen Flow Rate (L/min) (L/min) 2 Oxygen Delivery Method Nasal Cannula Pulse Ox (%) 88 Pulse Rate (60-100 beats/min) 95 Dyspnea Alejandro Scale (0-10) 8 Exertion Alejandro Scale (6-20) 6 Post-test Oxygen Flow Rate (L/min) (L/min) 2 Oxygen Delivery Method Nasal Cannula Pulse Ox (%) 94 Pulse Rate (60-100 beats/min) 83 Full Laps Walked 9 Partial Lap, Number of Tiles Walked 39 Total Distance Walked (ft) 570 07/27/21 09:29 Cardiopulmonary Services by Iveth Nagel HE TOLD ME THAT HE IS TO WEAR O2 AT HOME BU USUALLY DOESN'T. UPON ARRIVAL SPO2 WAS 95% BEFORE HE STARTED TO WALK. Initialized on 07/27/21 09:29 - END OF NOTE Interpretation Interpretation: The patient ambulated 570 feet over the course of 6 minutes beginning on room air without assistive devices. Pretesting oxygen saturation was noted to be 86% on room air. The patient was placed on 2 L/min of oxygen to begin the test. With ambulation, the jian oxygen saturation was 88% on 2 L/min. Recommendations Recommendations: 2 L/min of supplemental oxygen should be utilized at rest. 3 L/min should be utilized with exertion.
== END | disposition home or self-care (01) ==
LOC: PSN 08:26
PROVIDERS: PCP Internal Medicine; Referring Provider Internal Medicine Critical Care Medicine; Visit Provider Internal Medicine Critical Care Medicine
DX: R09.02 Hypoxemia (principal); R06.02 Shortness of breath
CPT/HCPCS: 94618

== ENCOUNTER → 2021-08-03 | Outpatient (CLI) | payer MEDICARE, SELFPAY ==
--- NOTE | 2021-08-03 13:32 | PFTCOMP ---
COMPLETE PULMONARY FUNCTION TEST INTERPRETATION Brief HPI: Patient is a 70 year old male, currently under the care of Dr. Morocho, who presents to [facility] for complete pulmonary function tests secondary to diagnosis of hypoxemia. Respiratory therapist reports good effort and reproducible results. Interpretation: Forced expiration spirometry shows no large airways obstructive ventilatory defect with an FEV1 of 104% predicted. There is no significant bronchodilator response by strict ATS criteria. Spirograms are of good quality and plateau normally. The respiratory flow volume loop shows a normal pattern. Lung volumes by body plethysmography show a normal total lung capacity at 6.93 L, 100% predicted. All other lung volumes are within normal limits. Diffusion capacity by carbon monoxide is decreased at 66% predicted. The airway resistance is normal. No previous pulmonary function tests were available for review. Impression: Isolated reduction in diffusion capacity with relatively preserved lung volumes and spirometry, and a pattern consistent with pulmonary vascular disease.
== END | disposition home or self-care (01) ==
LOC: PSN 09:58
PROVIDERS: PCP Internal Medicine; Referring Provider Internal Medicine Critical Care Medicine; Visit Provider Internal Medicine Critical Care Medicine
DX: R09.02 Hypoxemia (principal); R06.02 Shortness of breath
CPT/HCPCS: 94060; 94726; 94729

== ENCOUNTER → 2021-08-04 | Outpatient (CLI) | payer MEDICARE, SELFPAY ==
--- NOTE | 2021-08-04 09:51 | ECHOCS_ITS ---
Reason For Study: DYSPNEA/SOB Procedure This was a 2D Doppler, Color Flow transthoracic echocardiogram. The study was technically difficult. Contrast injection was performed. Exam performed in department. Left Ventricle The echocardiographic and contrast enhanced images obtained there appears to be grossly normal left ventricular size, wall motion, and systolic function. The estimated ejection fraction is 55 %. No evidence for diastolic dysfunction. Right Ventricle Normal RV size. Normal systolic function. Atria Normal left atrium. Normal right atrium. No doppler evidence for ASD. Bubble contrast study negative for right to left interatrial shunt. Mitral Valve There is no mitral annular calcification. Normal mitral valve. Trivial mitral valve insufficiency. Tricuspid Valve Normal tricuspid valve. Trivial tricuspid valve insufficiency. Right ventricular systolic pressure estimated to be 34 mmHg. Aortic Valve Trisinus/trileaflet aortic valve. Mild focal aortic valve calcification. Trivial aortic valve insufficiency. Pulmonic Valve The pulmonic valve is not well visualized. Trivial eccentric pulmonic valve insufficiency. Great Vessels Normal sized aortic root. Calcified aortic root. Pericardium/Pleural No pericardial effusion. Epicardial fat. Medication 22 gauge I.V. with prn adaptor inserted into right arm. Diluted definity 5ml given slow IV push to enhance endocardial definition. Performed a rapid injection of agitated mix of 9 cc saline and 1cc air to assess for atrial septal defect. MMode/2D Measurements & Calculations LVIDd: 5.5 cm IVSd: 1.3 cm Ao root diam: 3.8 cm LVIDs: 3.9 cm LVPWd: 1.1 cm RVDd: 4.5 cm FS: 28.9 % LAV(MOD-bp): 42.1 ml LVAd ap4: 53.3 cm2 LVAd ap2: 43.7 cm2 LAV(MOD-bp) Indexed: 17.7 ml/m2 LVLd ap4: 10.5 cm LVLd ap2: 9.1 cm LAV(MOD-sp2): 37.2 ml EDV(MOD-sp4): 221.8 ml EDV(MOD-sp2): 172.8 ml LAV(MOD-sp4): 42.0 ml EDV(sp4-el): 229.8 ml EDV(sp2-el): 177.6 ml LVAs ap4: 34.1 cm2 LVAs ap2: 28.5 cm2 LVLs ap4: 8.6 cm LVLs ap2: 7.8 cm ESV(MOD-sp4): 114.4 ml ESV(MOD-sp2): 84.2 ml ESV(sp4-el): 115.2 ml ESV(sp2-el): 88.1 ml EF(MOD-sp4): 48.4 % EF(MOD-sp2): 51.3 % EF(sp4-el): 49.9 % SV(MOD-sp4): 107.4 ml SV(MOD-sp2): 88.6 ml SV(sp4-el): 114.6 ml LA A4 area: 15.9 cm2 LA dimension(2D): 4.1 cm RA A4 area: 13.9 cm2 Time Measurements MV dec time: 0.19 sec Doppler Measurements & Calculations MV E max oren: 44.4 cm/sec Lat Peak E' Oren: 3.9 cm/sec Med Peak E' Oren: 3.7 cm/sec MV A max oren: 71.2 cm/sec E/E' lat: 11.4 E/E' med: 12.0 MV E/A: 0.62 Ao V2 max: 135.3 cm/sec LV V1 max: 100.9 cm/sec PA V2 max: 108.3 cm/sec Ao max P.3 mmHg LV V1 max P.1 mmHg TR max oren: 278.4 cm/sec TR max P.0 mmHg ECHO/Echo Complete W/ Contrast Interpretation Summary The study was technically difficult. Contrast injection was performed. The echocardiographic and contrast enhanced images obtained there appears to be grossly normal left ventricular size, wall motion, and systolic function. The estimated ejection fraction is 55 %. Trivial mitral valve insufficiency. Trivial tricuspid valve insufficiency. Mild focal aortic valve calcification. Trivial aortic valve insufficiency. Trivial eccentric pulmonic valve insufficiency. Calcified aortic root. Epicardial fat. Right ventricular systolic pressure estimated to be 34 mmHg. No evidence for diastolic dysfunction. Ordering Physician: Dre Morocho Referring Physician: PRAVEEN SCHULTE Performed By: Mary Bolye RDCS
== END | disposition home or self-care (01) ==
LOC: CVS 09:49
PROVIDERS: PCP Internal Medicine; Referring Provider Internal Medicine Critical Care Medicine; Visit Provider Internal Medicine Critical Care Medicine
DX: R06.00 Dyspnea, unspecified (principal); R06.02 Shortness of breath
CPT/HCPCS: 93306; Q9957; A4216; C8929

== ENCOUNTER → 2021-09-02 | Outpatient (CLI) | payer MEDICARE, SELFPAY | END | disposition home or self-care (01) | LOC: SL 20:25 | PROVIDERS: PCP Internal Medicine; Visit Provider Nurse Practitioner Acute Care | DX: G47.30 Sleep apnea, unspecified (principal); J47.9 Bronchiectasis, uncomplicated; R09.02 Hypoxemia | CPT/HCPCS: 95811 ==

== ENCOUNTER → 2021-11-08 | Outpatient (CLI) | payer MEDICARE, SELFPAY | END | disposition home or self-care (01) | LOC: SL 09:48 | PROVIDERS: PCP Internal Medicine; Visit Provider Nurse Practitioner Acute Care | DX: Z00.00 Encounter for general adult medical examination without abnormal findings (principal) ==

== ENCOUNTER 2021-12-08 09:36 | Outpatient (CLI) | payer MEDICARE, SELFPAY ==
--- NOTE | 2021-12-08 08:27 | EKG12_ITS ---
Test Reason : PRE OP Blood Pressure : / mmHG Vent. Rate : 057 BPM Atrial Rate : 057 BPM P-R Int : 188 ms QRS Dur : 110 ms QT Int : 416 ms P-R-T Axes : 055 -08 033 degrees QTc Int : 404 ms Sinus bradycardia Otherwise normal ECG Confirmed by ENEIDA LAUGHLIN, NERY ([id number]), video editor FADI FLOWER ([id number]) on 12/09/2021 8:14:24 AM Referred By: Hardy Corrales Confirmed By:NERY MONIQUE MD
[2021-12-08 09:45] LABS: Hematocrit 32.4 % (40-54); Hemoglobin 10.8 g/dL (13.0-16.5); Mean Corp Hgb Conc 33.3 g/dL (32-36); Mean Corpuscular Hgb 31.2 pg (27.0-32.0); Mean Corpuscular Volume 93.6 fL (80-94); Mean Platelet Vol. 11.2 fl (6.2-12.0); Platelet Count 237 K/mm3 (150-450); RBC Distribution Width CV 12.3 % (11.6-14.6); Red Blood Count 3.46 M/mm3 (4.6-6.2); White Blood Count 8.6 K/mm3 (4.4-11.0)
[2021-12-08 10:10] LABS: Hemoglobin A1c 12.8 % (3.8-5.6)
[2021-12-08 10:11] LABS: Anion Gap 6 (5-15); BUN 40 mg/dL (7-18); BUN/Creat Ratio 19.2 RATIO (10-20); Calcium,Total 9.3 mg/dL (8.5-10.1); Chloride 109 mmol/L (98-107); Creatinine, Serum 2.08 mg/dL (0.70-1.30); EST Glomerular Filtration Rate 33 mL/min (>60); Est Glom Filt Rate - Afr Amer 41 mL/min (>60); Glucose 277 mg/dL (74-106); Potassium 4.7 mmol/L (3.5-5.1); Sodium Level 139 mmol/L (136-145)
== END 2021-12-08 23:59 | disposition home or self-care (01) ==
LOC: PAT 01-06 09:36
PROVIDERS: Anesthesiology; PCP Internal Medicine; Referring Provider Surgery; Visit Provider Surgery
DX: Z01.818 Encounter for other preprocedural examination (principal); R00.1 Bradycardia, unspecified; Z53.9 Procedure and treatment not carried out, unspecified reason; Z01.812 Encounter for preprocedural laboratory examination; Z01.810 Encounter for preprocedural cardiovascular examination; Z79.899 Other long term (current) drug therapy
CPT/HCPCS: 36415; 80048; 83036; 85027; 93005

== ENCOUNTER 2022-03-24 05:50 | Day surgery (SDC) | payer MEDICARE, SELFPAY ==
--- NOTE | 2022-03-21 13:48 | EKG12_ITS ---
Test Reason : PRE OP Blood Pressure : / mmHG Vent. Rate : 106 BPM Atrial Rate : 106 BPM P-R Int : 192 ms QRS Dur : 106 ms QT Int : 348 ms P-R-T Axes : 058 -31 059 degrees QTc Int : 462 ms Sinus tachycardia with occasional Premature ventricular complexes Left axis deviation Abnormal ECG Confirmed by MARISOL LAUGHLIN, JAMEE ([id number]), news video editor FADI FLOWER ([id number]) on 03/22/2022 11:34:08 AM Referred By: Hardy Corrales Confirmed By:JAMEE DAMON MD
[2022-03-21 15:58] LABS: Hematocrit 33.9 % (40-54); Hemoglobin 11.3 g/dL (13.0-16.5); Mean Corp Hgb Conc 33.3 g/dL (32-36); Platelet Count 247 K/mm3 (150-450); RBC Distribution Width CV 12.3 % (11.6-14.6); RBC Distribution Width SD 43.2 fl (35.1-43.9); Red Blood Count 3.53 M/mm3 (4.6-6.2); White Blood Count 8.1 K/mm3 (4.4-11.0)
[2022-03-21 16:30] LABS: Anion Gap 7 (5-15); BUN 54 mg/dL (7-18); Calcium,Total 9.5 mg/dL (8.5-10.1); Chloride 107 mmol/L (98-107); Creatinine, Serum 2.45 mg/dL (0.70-1.30); EST Glomerular Filtration Rate 28 mL/min (>60); Est Glom Filt Rate - Afr Amer 34 mL/min (>60); Glucose 113 mg/dL (74-106); Potassium 4.4 mmol/L (3.5-5.1); Sodium Level 139 mmol/L (136-145)
[2022-03-21 16:53] LABS: Hemoglobin A1c 7.6 % (3.8-5.6)
[2022-03-24] VITALS (11 sets, daily range): BP systolic 96–122; BP diastolic 54–68; PULSE 63–92; RESP 12–32; TEMP 36.2–36.9; O2SAT 88–97; BMI 34.0
--- NOTE | 2022-03-24 06:39 | HP.PCM_ITS ---
History and Physical Date of Admission: 03/24/22 Allergies No Known Allergies Allergy (Verified 02/09/22 09:37) Medications amlodipine 5 mg tablet 5 mg PO DAILY 03/30/20 [History Confirmed 12/07/21] atorvastatin 10 mg tablet 10 mg PO QHS 03/30/20 [History Confirmed 12/07/21] empagliflozin 25 mg tablet 25 mg PO DAILY 03/30/20 [History Confirmed 12/07/21] budesonide 0.5 mg/2 mL suspension for nebulization (Pulmicort) 1.5 mg inhalation PRN PRN SOB 07/26/21 [History Confirmed 12/07/21] lisinopril 20 mg-hydrochlorothiazide 25 mg tablet 1 tab PO DAILY 10/13/21 [History Confirmed 12/07/21] tamsulosin 0.4 mg capsule (Flomax) 0.4 mg PO QHS #30 caps 12/06/21 [Rx Confirmed 12/07/21] insulin glargine 100 unit/mL (3 mL) subcutaneous pen 20 unit subcut QPM 02/09/22 [History Confirmed 02/09/22] PFSH Medical History? Anemia Arthritis BiPAP (biphasic positive airway pressure) dependence Bruising CKD (chronic kidney disease) Diabetes Enlarged prostate Gallstones High cholesterol History of echocardiogram Hypercholesteremia Hypertension Insulin dependent diabetes mellitus Kidney stones Obesity On home oxygen therapy PVC (premature ventricular contraction) Sleep apnea Wears glasses Surgical History? History of esophagogastroduodenoscopy (EGD) History of mandibular surgery Family History? Father Heart diseaseMother CVA (cerebral vascular accident) Social History? Smoking Status:? Former smoker pack-years: 2 how long ago did patient quit smoking:? 50 years ago alcohol intake:? never HPI HPI HPI: PHUONG VILLARREAL, is a 70 M who presents to the office today for an update history and physical for a laparoscopic right inguinal and umbilical hernia repair with mesh. Patient denies any recent hospitalizations or illnesses. Patient has been working with pulmonary since November 08 to assist with his sleep apnea. He has been compliant since November 08 with his Bipap machine. Prior to this, patient was refusing to wear the machine. Patient notes he is unable to to reduce his right groin hernia. He denies pain/discomfort at this site. He denies having COVID within the last 4 weeks. He denies any previous complications with anesthesia. He denies previous myocardial infarction or stroke. Patient denies any changes in bowel habits and is up multiple times per night urinating. Patient was scheduled in early December this year for the procedure. Patient's HgbA1C was 12.8 and surgery was canceled. Patient has since been evaluated by his PCP who has placed the patient on 24 units of insulin daily. Patient had a repeat HgbA1C on 02/04, which demonstrated 8.6. ? ? ? Patient's previous history per Dr. Corrales: PHUONG VILLARREAL, is a 70 M who presents to the office today for ongoing surgical evaluation of incidental gallstones and umbilical hernia and right inguinal hernia.? The patient's most recent pulmonary visit was October 13, [address] Dre Morocho.? It is apparent that the patient was recommended oxygen therapy as well as BiPAP therapy.? Apparently he has been noncompliant with both.? Because the patient's noncompliance he is felt to be at increased risk for postop pulmonary complication. 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 He is able to move about 10 baljit of hay before he has to stop and rest.? He only infrequently uses home oxygen.? States that its not convenient for him to try to carry it around the farm.? He d id decline the CPAP therapy. This is a patient I saw back on July 26, 2010. My previous notes reflect the following HPI: PHUONG VILLARREAL, is a 70 M who presents to the office today for surgical consu ltation regarding abdominal bloating.? Patient is being referred by Dr. Leeanna Alex and a written copy of my surgical consult recommendations will return to her.? On her visit to her he was noted to have a PO2 of 87% on room air.? Patient apparently is not on CPAP or oxygen at home.? The patient is noted to have gallstones on imaging.? He is being referred to see if there is a connection between that and his abdominal bloating.? Although the patient has abdominal bloating this is a constant event and is not related to eating.? He has no symptoms that would suggest biliary colic.? He does not really describe postprandial discomfort or discomfort in the right upper quadrant.? He just feels like he is bloated.? He is got no nausea or vomiting.? This is been ongoing for over a year. The patient has seen Dr. Dre Morocho and has upcoming testing regarding his pulmonary dysfunction.? He briefly smoked cigarettes when he was in the service.? He now has oxygen to use but he entered the office without He does have a new primary concern and that is a bulging and discomfort in the right groin.? It is of note that the CT scan of April 2020 demonstrated a small fat-containing right inguinal hernia.? However now this hernia is quite demonstrative. It is of note that Dr. Bret Almendarez assisted him on April 21, 2020 with an upper endoscopy because of upper abdominal pain and iron deficiency anemia.? Normal stomach.? Normal duodenum.? Biopsies showed chronic gastritis.? Mild reflux.? H. pylori was negative.? Colonoscopy performed the same day demonstrated a rectal polyp which was an adenoma.? No other acute findings. At the [facility] on May 25, [address] the patient [address] a CT scan of the abdomen pelvis.? Bibasilar bronchiectasis.? Small hiatal hernia.? Sigmoid diverticulosis.? Small umbilical hernia.? With fat small right inguinal hernia with fat multiple gallstones. On July 19, [address] of the chest because of the elevated D- dimer.? Diffuse soft plaque noted throughout the aorta. As of July 19, 2021 white blood cell count 9.6 and he will 12.1 medically 37.1 platelet count 243,000.? Glucose elevated at 191.? BUN elevated 45.? Creatinine elevated to 2.47.? Estimated GFR 28 consistent with stage IV chronic renal insufficiency.? Potassium was elevated at 5.3. Nonreducible right inguinal hernia.? Clearly this is progressed from his CT scan of a year ago.? It is quite sizable and remarkable.? Smaller umbilical hernia.? Also not reducible.? I recommend the patient a umbilical herniorrhaphy with mesh with a laparoscopic right inguinal herniorrhaphy with mesh.? I discussed technique, benefit, risk and alternatives.? Has had an opportunity ask and have questions answered. He has ongoing pulmonary evaluation.? We will schedule his hernia repairs as soon as his pulmonary situation is clarified and treated.? The patient is aware and concurs. Regarding the patient's abdominal bloating I do not believe that there is bowel involved with writing hernia that is a potential.? He does not act like he has a bowel obstruction causing his bloating.? But also to his abdominal distention does not appear to be episodic or food related.? I do not believe it is related to his incidental gallstones.? I would not recommend combining a clean contaminated cholecystectomy with a clean herniorrhaphy. He has had an opportunity to ask and have questions answered.? We will schedule procedure at his discretion.? I very much appreciate the kind opportunity of assisting with the surgical care ? ROS General General: No weight change, appetite, fatigue, colon cancer, breast cancer or weakness HEENT HEENT: No difficulty swallowing, eye injury, eye surgery, swollen glands or hoarseness Endo Endocrine: Yes diabetes mellitus; No thyroid disease, thyroid cancer, Hair loss, heat intolerance or cold intolerance Skin Skin: No rash or changing moles Breast Breast: No left breast lump, right breast lump, nipple discharge, breast pain, abnormal mammogram, abnormal US or breast enlargement Musc Musculoskeletal: Yes back problems; No arthritis, rheumatoid arthritis, gout or joint pain Cardio Cardiovascular: No murmur, pacemaker, heart disease, atrial fibrillation, high blood pressure, heart attack, heart stent, palpitations, shortness of breat with exertion or chest pain Psych Psychiatric: No depression, anxiety or hearing voices Resp Respiratory: Yes shortness of breath, Yes sleep apnea, No cough, No COPD, No asthma, No emphysema and No wheezing Gastro Gastrointestinal: Yes abdominal pain, No nausea or vomiting, No diarrhea, No constipation, No blood in stool, Yes acid reflux, No hemorrhoids, No ulcers, Yes gallbladder problem and No black,tarry stools Antolin Hematologic: No blood thinners, No blood disorders, No bleeding, No anemia and No blood clots Neuro Neurologic: No system reviewed and no additional complaints, except as documented, No as per HPI, No abnormal gait, No abnormal hearing, No abnormal movements, No abnormal speech, No behavioral changes, No burning sensations, No confusion, No convulsions, No disequilibrium, No dizziness, No localized weakness, No frequent falls, No headache(s), No lack of coordination, No loss of vision, No memory loss, No numbness, No other visual disturbances, No radicular pain, No restless legs, No sensory deficit, No syncope, No tingling, No tremor(s), No weakness and No other Exam Const General: cooperative, healthy appearing, comfortable and no acute distress [facility] Head: normal to inspection Eyes General: appearance normal, both eyes and all related structures Neck Neck: normal visual inspection Neck mass: No Resp Effort & Inspection: normal respiratory effort Auscultation: clear to auscultation bilaterally Cardio Rate: regular rate Rhythm: regular rhythm GI Other: large right inguinal incarcerated hernia and umbilical hernia Skin General: no rashes or lesions noted Neuro General: no focal motor deficits and CN's II-XI intact bilaterally Extrem General: normal to inspection Psych Appearance: grossly normal Affect: normal affect Assessment and Plan Assessment and Plan (1) Inguinal hernia of right side without obstruction or gangrene: ?Status:?Acute ?Plan: Dr. Corrales will plan to perform a laparoscopic right inguinal and umbilical hernia repair with mesh. Procedure details, risks and benefits have been reviewed. Patient does have nocturia. I will add Flomax to his nightly regimen to start prior to surgery to assist in avoiding a Sol catheter post- operatively. Patient and his have had the opportunity to ask and have questions answered. Patient verbally understands and agrees with the plan. (2) Umbilical hernia without obstruction or gangrene: ?Status:?Acute (3) Cholelithiasis: ?Status:?Acute ?Plan: Patient also has evidence of gallstones. He notes a bloating sensation. He denies any evidence of gallbladder attacks. A laparoscopic cholecystectomy will be considered at a later date. The patient states that he has had no change in his health. He is denying acute shortness of breath. We discussed umbilical herniorrhaphy and laparoscopic right inguinal herniorrhaphy and the utilization of mesh. He is aware of postoperative instructions. We will proceed as noted. Hardy Corrales M.D., F.A.C.S.
[2022-03-24 06:45] LABS: Bedside Glucose 166 mg/dL (74-106)
--- NOTE | 2022-03-24 06:49 | DCINST_ITS ---
Discharge Instructions Procedure General Surgery Diet Discharge Diet: Light diet - advance as tolerated (if you have questions about your diet instructions, please talk to you doctor.) Activity Discharge Activity: May Not Drive (for 3-5 days or while taking narcotic pain medicine.) May shower in (days): 1 Lifting Restrictions: 10 pounds Dressing / Incision Call your doctor if your incision/area has: Continuous Slow Oozing, Sudden Increased Bleeding, Increased Pain/ Swelling, Increased Redness and Foul Smelling Discharge Call your doctor if you observe: Fever of 101 or Higher Suture Line Care: Avoid Pulling/Pushing and Avoid Pinching/Bending Additional Dressing/Incision Instructions:: Change or remove dressing in 4 days. Leave steri-strips in place for 1 week. Follow Up Care Please Follow Up With: Hardy Corrales MD When: Call [phone] to make an appointment to be seen in about 10 days. Test Results: Test results from this visit will be discussed in further detail at your follow- up appointment, if applicable. Discharge Plan Admission Attending Provider: Hardy Corrales Primary Care Provider: Leeanna Alex Consulting Providers: Steve Lopez Discharge Orders/Prescriptions Prescriptions: No Action amlodipine 5 mg tablet 5 mg PO DAILY Label Comments: TAKE 1 TABLET BY MOUTH EVERY DAY IN THE MORNING atorvastatin 10 mg tablet 10 mg PO QHS Label Comments: TAKE 1 TABLET BY MOUTH EVERYDAY AT BEDTIME empagliflozin 25 mg tablet 25 mg PO DAILY Label Comments: TAKE 1 TABLET BY MOUTH EVERY DAY budesonide [Pulmicort] 0.5 mg/2 mL suspension for nebulization 1.5 mg inhalation PRN PRN (Reason: SOB) lisinopril-hydrochlorothiazide 20-25 mg tablet 1 tab PO DAILY tamsulosin [Flomax] 0.4 mg capsule 0.4 mg PO QHS Qty: 30 1RF Ozempic 0.25 mg or 0.5 mg(2 mg/1.5 mL) pen injector 2.5 mg SUBCUT SA Label Comments: inject 0.25 milliliters by mouth every week for 4 weeks then INCREASE to 0.5 every week Toujeo Max U-300 SoloStar 300 unit/mL (3 mL) insulin pen 25 unit SUBCUT DAILY Label Comments: inject 25 units subcutaneously once daily Referrals / Follow Up: Isai,Leeanna, DO [Primary Care Provider] - Disposition Disposition (needs filled in before D/C Order can be placed): Home, Self Care
[2022-03-24] MEDS: 0.9% Normal Saline 1,000 ML 15 ML IV (07:06)
[2022-03-24] MEDS: Ipratropium/Albuterol Sulfate 3 ML AMPUL.NEB INHALATION ×2 (07:14→09:40)
[2022-03-24] MEDS: Cefazolin 2 GM in 0.9% Normal Saline 100 ML IV (07:26)
--- NOTE | 2022-03-24 07:30 | HERN_PTH ---
PATIENT: PHUONG VILLARREAL LOC: [facility] [place] U[place][id number] AGE/SX: 71/M ROOM: RE03/24/[address]: Dr. Hardy Corrales MD : [id number] BED: DIS: 03/24/2022 SPEC #: [id number] RECD: 03/24/22 12:01 STATUS: BOZENA RESergio #: [id number] DYAANA: 03/24/22 07:[address]: Hardy Corrales DEPT: SURGICAL PATHOLOGY RECD BY: Yulissa Astudillo ENTERED: 03/24/22 12:26 SP TYPE: Hernia OTHR DR: MD Dr. Leeanna Chandra DO Tissues: HERNIA Procedures: Surgery Specimen Level II HEADER OPERATION: Laparoscopic inguinal hernia repair and umbilical hernia repair PRE-OP DIAGNOSIS: Umbilical hernia, right inguinal hernia TISSUE SUBMITTED: Hernia sac (umbilical) and contents MICROSCOPIC DIAGNOSIS Soft tissue of inguinal region, excision: Fibrofatty tissue consistent with hernia sac. AM:jihan 03/25/2022 MICROSCOPIC DESCRIPTION Slides are reviewed. GROSS DESCRIPTION Received in fixative is one container labeled with the patient's name and designated hernia sac. The specimen consists of two irregular fragments of pink-yellow fibrofatty tissue ranging in size from 2 to 4 cm. Sections reveal homogenous yellow cut surfaces. Metal Weigher sections are submitted in one cassette. / AM:jihan 03/24/2022 TC:5 CPT: 75653
[2022-03-24] MEDS: Bupivacaine 0.25% 30 ML Vial (08:00)
--- NOTE | 2022-03-24 08:58 | OP.PCM_ITS ---
Report of Operation Date of Procedure: 03/24/22 Pre-Operative Diagnosis: Incarcerated large indirect right inguinal hernia, inc arcerated umbilical hernia Post-Operative Diagnosis: Same Surgery/Procedure Performed:: Laparoscopic right inguinal herniorrhaphy with extra-large Bard 3D max mesh Umbilical herniorrhaphy with 6.[address] hernia patch Extra-large right lot number [id number], reference #[id number], expiry date 07/05/[address] reference #[id number], lot number [id number], expiry date 01/05/2023 Description of Surgical Findings:: Timeout informed consent was obtained. 71-year-old gentleman was taken to the operating placed supine on the table underwent general endotracheal intubation anesthesia Ancef 2 g were given intravenously the abdomen and right groin area sterilely prepped and draped 0.25% Marcaine was used as local anesthetic a total of 30 cc was used skin sites were. A size a supraumbilical curvilinear incision was created sharp blunt dissection was used to identified incarcerated preperitoneal fatty tissue hernia sac and contents resected with electrocautery varies needle inserted saline drop test performed the abdomen was insufflated with CO2 to a pressure of 10 mmHg pressure 10 mm trocar inserted 10 mm laparoscope inserted no evidence of any trocar injuries 5 mm trochars were placed in the right left lower quadrants under visualization a right ilioinguinal nerve block was performed with Marcaine under laparoscopic visualization there was incarcerated sigmoid colon within the right indirect inguinal hernia significant effort actually was required to carefully and tediously with drawl this out of the hernia sac with both traction pressure and forward compression pressure from the scrotum finally the sigmoid colon could be evacuated it was noted to be viable. Very large hernia sac this was carefully and tediously bluntly and sharply dissected free. It adherent hypertrophic cremasteric fibers were transected with Hem-o-rashel clip and cautery. Vas deferens identified preserved. A cord lipoma was identified as well and this was read drawn as well. The hernia sac eventually was completely dissected free the direct indirect and femoral area now being identified. There was significan t fibrofatty tissue at the femoral area and medial pubic area where needed I used some scissors cautery dissection. Had the hernia sac completely reduced I placed an extra-large right Bard 3D max mesh carefully placed it Vee to cover the defect area and I secured it laterally superiorly and medially with secure strap I felt that I cannot absolutely excellent coverage of the defect area the peritoneum was then approximated to itself with secure strap and Hem-o-rashel clips complete obliteration of the mesh was achieved. The abdomen was allowed to deflate of the CO2 a preperitoneal plane was created at the umbilical area a 6.[address] patch was placed that was secured in place with interrupted 0 Nurolon and then the fascia was closed transversely with simple sutures of 0 Nurolon good closure was achieved and felt that I had good placement of that mesh and securement of the fascia. The abdomen was reinsufflated and that the repair was inspected the mesh had been completely tucked in the preperitoneal area and no mesh was on view. The abdomen was again allowed to deflate of the CO2. Trochars were removed. Skin edges were approximated with interrupted 4-0 Monocryl subdermal stitches. Steri-Strips Telfa OpSite dressings applied. Sponge and instrument and needle counts were reported to the surgeon to be correct. Specimen umbilical hernia sac and contents. Drains none. Blood loss minimal. Hardy Corrales M.D., F.A.C.S. Surgeon: Hardy Corrales Anesthesiologist: Ambar Dooley
[2022-03-24 09:55] LABS: Bedside Glucose 204 mg/dL (74-106)
== END 2022-03-24 12:30 | disposition home or self-care (01) ==
LOC: SDC 05:50 → AC 05:51
PROVIDERS: Anesthesiology; PCP Internal Medicine; Referring Provider Surgery; Visit Provider Surgery
PROC: (CPT 49650; principal; 2022-03-24 07:10)
DX: K80.20 Calculus of gallbladder without cholecystitis without obstruction (principal); Z79.4 Long term (current) use of insulin; G47.30 Sleep apnea, unspecified; R73.9 Hyperglycemia, unspecified; K29.50 Unspecified chronic gastritis without bleeding; K57.30 Diverticulosis of large intestine without perforation or abscess without bleeding; D12.8 Benign neoplasm of rectum; K40.90 Unilateral inguinal hernia, without obstruction or gangrene, not specified as recurrent; K44.9 Diaphragmatic hernia without obstruction or gangrene; Z87.891 Personal history of nicotine dependence; K42.0 Umbilical hernia with obstruction, without gangrene; D50.9 Iron deficiency anemia, unspecified; Z99.81 Dependence on supplemental oxygen
CPT/HCPCS: 49587; 49650; 00750; 36415; 80048; 82962; 83036; 85027; 88302; 93005; 94640; C1781; J7030; J7120; A4216; J2405

== ENCOUNTER → 2023-03-01 | Outpatient (CLI) | payer MEDICARE, SELFPAY ==
[2023-03-01 13:08] LABS: AST(SGOT) 12 U/L (15-37); Alanine Aminotransfer ALT/SGPT 16 U/L (16-61); Albumin, Serum 3.8 g/dL (3.2-5.0); Alkaline Phosphatase 62 U/L (45-117); Anion Gap 4 (5-15); BUN 41 mg/dL (7-18); BUN/Creat Ratio 17.2 RATIO (10-20); Calcium,Total 8.9 mg/dL (8.5-10.1); Chloride 105 mmol/L (98-107); Creatinine, Serum 2.38 mg/dL (0.70-1.30); EST Glomerular Filtration Rate 29 mL/min (>60); Est Glom Filt Rate - Afr Amer 35 mL/min (>60); Glucose 280 mg/dL (74-106); Potassium 5.2 mmol/L (3.5-5.1); Protein, Total 7.8 g/dL (6.4-8.2); Sodium Level 134 mmol/L (136-145)
== END | disposition home or self-care (01) ==
PROVIDERS: PCP Internal Medicine; Visit Provider Internal Medicine
DX: N18.4 Chronic kidney disease, stage 4 (severe) (principal)
CPT/HCPCS: 80053

== ENCOUNTER → 2023-03-21 | Outpatient (CLI) | payer MEDICARE, SELFPAY ==
--- NOTE | 2023-03-21 09:13 | RDU_ITS ---
Reason For Study: CKD stage 4 Right Renal Artery Left Renal Artery Right renal artery ostium Left renal artery ostium 94.1/28.3 148.4/56.2 RSV/EDV. PSV/EDV. Right renal artery proximal Left renal artery proximal PSV/EDV 135.2/43.0 PSV/EDV. 105.1/30.5 . Right renal artery mid 146.2/54.0 Left renal artery mid 78.8/21.7 PSV/EDV. PSV/EDV . Right renal artery distal Left renal artery distal 57.0/14.2 108.9/32.0 PSV/EDV. PSV/EDV. Right RAR 1.99. Left RAR 1.41. Right Renal Parenchyma Left Renal Parenchyma Upper Pole Medula 38.3/15.2 Left upper pole medulla 23.7/8.4 PSV/EDV. PSV/EDV . Right upper pole medulla EDR 0.40 . Left upper pole medulla EDR 0.40 . Right upper pole medulla R.I. Left upper pole medulla R.I. 0.65 . 0.60 . UP Cortex 18.8/10.2 PSV/EDV. Upper Naman Cortx 22.7/7.3 PSV/EDV. Left upper pole cortex EDR 0.50 . Right upper pole cortex EDR 0.30 . Left upper pole cortex R.I. 0.46 . Right upper pole cortex R.I. 0.68 . Left lower Pole medulla 27.4/7.1 Right lower Pole medulla 32.5/8.5 PSV/EDV . PSV/EDV . Left lower pole medulla EDR 0.30 . Right lower pole medulla EDR 0.30 . Left lower pole medulla R.I. 0.74 . Right lower pole medulla R.I. Lower Pole Cortx 20.6/7.1 PSV/EDV. 0.74 . Left lower pole cortex EDR 0.30 . Lower Pole Cortex 23.9/7.3 PSV/EDV. Left lower pole cortex R.I. 0.65 . Right lower pole cortex EDR 0.30 . Left Renal Hilar Right lower pole cortex R.I. 0.69 . LT Hilar avg 53.6/19.2 PSV/EDV . Right Renal Hilar Left hilar acceleration time 30 Right Hilar avg 60.4/15.3 PSV/EDV. m/sec. Right hilar acceleration time 20 Left Renal Dimensions m/sec. Left kidney size 8.85 cm . Right Renal Dimensions Left cortical dimension 1.42 cm . Right kidney size 9.45 cm . Right cortical dimension 1.71 cm . Aorta Proximal abdominal aorta 2.60 x 2.60 cm . Proximal abdominal aorta peak systolic velocity is 66.0 cm/sec . Distal abdominal aorta 2.32 x 2.42 cm . Distal abdominal aorta peak systolic velocity is 74.7 cm/sec . Patient Safety Technically difficult study due to bowel gas and patient anatomy. VL/Renal Artery Duplex Ultrasound Interpretation Summary Right renal artery patent with normal velocities and no evidence of stenosis Left renal artery patent with normal velocities and no evidence of stenosis Right renal vein patent Left renal vein patent Right kidney normal in size Left kidney normal in size Ordering Physician: Leeanna Alex Referring Physician: Leeanna Alex Performed By: Jordan Charlton RVT
--- NOTE | 2023-03-21 11:52 | US_ITS ---
PROCEDURE: RENAL ULTRASOUND - COMPLETE REASON FOR EXAM: Male, 72 years old. Stage IV chronic kidney disease. TECHNIQUE: Ultrasound evaluation of the bilateral kidneys was performed with real-time ultrasonography and static grayscale imaging. COMPARISON: Prior exam of 07/19/2021. FINDINGS: RIGHT KIDNEY: Normal location of the right kidney which is normal in size. The right kidney measures 9.4 x 4.8 x 5.9 cm. There is a normal cortex of the right kidney. The renal cortex measures 1.2 cm. There is no right renal mass or cyst. There are no right renal calculi. There is no right hydronephrosis. DISTAL RIGHT URETER: There is non-visualization of the distal right ureter. There is no demonstrated right ureterovesical junction calculus. There is no demonstrated right ureteral jet. LEFT KIDNEY: Normal location of the left kidney which is normal in size. The left kidney measures 10.7 x 5.3 x 4.8 cm. There is a normal cortex of the left kidney. The renal cortex measures 1.6 cm. There is no left renal mass or cyst. There are no left renal calculi. There is no left hydronephrosis. DISTAL LEFT URETER: There is non-visualization of the distal left ureter. There is no demonstrated left ureterovesical junction calculus. There is no demonstrated left ureteral jet. BLADDER: The distended urinary bladder has a volume of 204 ml. There is a normal wall thickness of the distended urinary bladder. US/Kidney and Bladder IMPRESSION: Unremarkable renal ultrasound without evidence of hydronephrosis. Electronically Signed: Stewart Garcia MD at 13:14 EST ,
== END | disposition home or self-care (01) ==
PROVIDERS: PCP Internal Medicine; Referring Provider Internal Medicine; Visit Provider Internal Medicine
DX: N18.4 Chronic kidney disease, stage 4 (severe) (principal)
CPT/HCPCS: 76770; 93975

== ENCOUNTER → 2023-05-18 | Outpatient (CLI) | payer MEDICARE, SELFPAY ==
[2023-05-18 10:27] LABS: Color, Urine Yellow (Yellow); Glucose, Dipstick 1000 mg/dl (Normal); Ketone-Dipstick Negative (Negative); Leukocyte Esterase-Dipstick Negative /ul (Negative); Nitrite-Dipstick Negative (Negative); Occult Blood-Urine 10 /ul (Negative); Protein-Dipstick 30 mg/dl (Negative); Specific Gravity, Urine 1.015 (1.002-1.030); Urine Bilirubin Dipstick Negative (Negative); Urine Clarity Clear (Clear); Urine Urobilinogen Normal (Normal)
[2023-05-18 10:57] LABS: Protein, Urine (Random) 41.2 mg/dL (<11.9); Protein:Creat Ratio 145 mg/g CRE (0-200)
[2023-05-18 11:13] LABS: Albumin, Serum 3.8 g/dL (3.2-5.0); BUN 37 mg/dL (7-18); BUN/Creat Ratio 17.1 RATIO (10-20); Calcium,Total 9.3 mg/dL (8.5-10.1); Chloride 105 mmol/L (98-107); Creatinine, Serum 2.16 mg/dL (0.70-1.30); EST Glomerular Filtration Rate 32 mL/min (>60); Est Glom Filt Rate - Afr Amer 39 mL/min (>60); Glucose 197 mg/dL (74-106); Phosphorus 3.3 mg/dL (2.5-4.9); Potassium 4.3 mmol/L (3.5-5.1); Sodium Level 135 mmol/L (136-145)
== END | disposition home or self-care (01) ==
LOC: MTLAB 08:57
PROVIDERS: PCP Internal Medicine; Referring Provider Internal Medicine Nephrology; Visit Provider Internal Medicine Nephrology
DX: N18.4 Chronic kidney disease, stage 4 (severe) (principal)
CPT/HCPCS: 36415; 80069; 81002; 82570; 84156

== ENCOUNTER → 2023-10-31 | Outpatient (CLI) | payer MEDICARE, SELFPAY ==
[2023-10-31 10:04] LABS: Hematocrit 37.7 % (40-54); Hemoglobin 12.4 g/dL (13.0-16.5); Mean Corp Hgb Conc 32.9 g/dL (32-36); Mean Corpuscular Hgb 30.2 pg (27.0-32.0); Mean Corpuscular Volume 91.7 fL (80-94); Mean Platelet Vol. 11.1 fl (6.2-12.0); Platelet Count 257 K/mm3 (150-450); RBC Distribution Width CV 12.9 % (11.6-14.6); RBC Distribution Width SD 42.6 fl (35.1-43.9); Red Blood Count 4.11 M/mm3 (4.6-6.2); White Blood Count 8.7 K/mm3 (4.4-11.0)
[2023-10-31 10:23] LABS: Protein, Urine (Random) 49.1 mg/dL (<11.9); Protein:Creat Ratio 348 mg/g CRE (0-200)
[2023-10-31 10:28] LABS: Vitamin D,25 Hydroxy 32.8 ng/mL
[2023-10-31 10:29] LABS: PTHIN 81.6 pg/mL (18.4-80.1)
[2023-10-31 10:35] LABS: Albumin, Serum 3.5 g/dL (3.2-5.0); BUN 35 mg/dL (7-18); BUN/Creat Ratio 16.2 RATIO (10-20); Calcium,Total 9.3 mg/dL (8.5-10.1); Chloride 107 mmol/L (98-107); Creatinine, Serum 2.16 mg/dL (0.70-1.30); EST Glomerular Filtration Rate 32 mL/min (>60); Est Glom Filt Rate - Afr Amer 39 mL/min (>60); Glucose 237 mg/dL (74-106); Phosphorus 3.7 mg/dL (2.5-4.9); Potassium 4.1 mmol/L (3.5-5.1); Sodium Level 137 mmol/L (136-145)
== END | disposition home or self-care (01) ==
LOC: MTLAB 08:43
PROVIDERS: PCP Internal Medicine; Referring Provider Nurse Practitioner Adult Health; Visit Provider Nurse Practitioner Adult Health
DX: N18.4 Chronic kidney disease, stage 4 (severe) (principal)
CPT/HCPCS: 36415; 80069; 82306; 82570; 83970; 84156; 85027

== ENCOUNTER → 2024-05-15 | Outpatient (CLI) | payer MEDICARE, SELFPAY ==
[2024-05-15 10:14] LABS: Hematocrit 36.8 % (40-54); Hemoglobin 12.3 g/dL (13.0-16.5); Mean Corp Hgb Conc 33.4 g/dL (32-36); Mean Corpuscular Hgb 30.8 pg (27.0-32.0); Mean Platelet Vol. 11.5 fl (6.2-12.0); Platelet Count 257 K/mm3 (150-450); RBC Distribution Width CV 13.1 % (11.6-14.6); RBC Distribution Width SD 43.6 fl (35.1-43.9); White Blood Count 9.6 K/mm3 (4.4-11.0)
[2024-05-15 10:30] LABS: Albumin, Serum 3.5 g/dL (3.2-5.0); BUN 31 mg/dL (7-18); BUN/Creat Ratio 16.3 RATIO (10-20); Calcium,Total 9.5 mg/dL (8.5-10.1); Chloride 107 mmol/L (98-107); EST Glomerular Filtration Rate 37 mL/min (>60); Est Glom Filt Rate - Afr Amer 45 mL/min (>60); Glucose 231 mg/dL (74-106); Phosphorus 3.6 mg/dL (2.5-4.9); Potassium 4.3 mmol/L (3.5-5.1); Sodium Level 138 mmol/L (136-145)
[2024-05-15 10:55] LABS: Protein, Urine (Random) 29.4 mg/dL (<11.9); Protein:Creat Ratio 241 mg/g CRE (0-200)
== END | disposition home or self-care (01) ==
LOC: MTLAB 07:55
PROVIDERS: PCP Internal Medicine; Referring Provider Internal Medicine Nephrology; Visit Provider Internal Medicine Nephrology
DX: N18.4 Chronic kidney disease, stage 4 (severe) (principal)
CPT/HCPCS: 36415; 80069; 82570; 84156; 85027

== ENCOUNTER → 2024-08-29 | Outpatient (CLI) | payer MEDICARE, SELFPAY ==
[2024-08-29 14:14] VITALS: PULSE 100; PULSE 102; PULSE 103; PULSE 106; PULSE 85; PULSE 86; O2SAT 85; O2SAT 86; O2SAT 89; O2SAT 90; O2SAT 91; O2SAT 92; O2SAT 93
--- NOTE | 2024-08-29 14:16 | CPS ---
Patient wears 2 lpm O2 at home at night with his BiPAP. 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
--- NOTE | 2024-09-03 12:35 | PCM.PSN.6M ---
PSN 6 Minute Walk Test 6 Minute Walk Test 6 Minute Walk Test: 6 Minute Walk Test PSN:6-Minute Walk Test Start: 08/29/24 14:14 Freq: Status: Active Protocol: [id number] Document 08/29/24 14:14 SEVERINO (Rec: 08/29/24 14:18 [email or web address] [id number]) 6 Minute Walk Test Date Performed 08/29/24 Time Performed 13:45 Height 6 ft Weight: 260 lb Weight in Pounds 260.[address]: Dre Morocho Assistive device None used: Pre-test Oxygen Delivery Room Air Method Pulse Ox (%) 92 Pulse Rate (60-100 86 beats/min) Dyspnea Alejandro Scale ( 0 0-10) Exertion Alejandro Scale 6 (6-20) 1st minute Oxygen Delivery Room Air Method Pulse Ox (%) 85 Pulse Rate (60-100 100 beats/min) 2nd minute Oxygen Flow Rate (L/ 2 min) (L/min) Oxygen Delivery Nasal Cannula Method Pulse Ox (%) 90 Pulse Rate (60-100 100 beats/min) 3rd minute Oxygen Flow Rate (L/ 2 min) (L/min) Oxygen Delivery Nasal Cannula Method Pulse Ox (%) 86 Pulse Rate (60-100 106 H beats/min) 4th minute Oxygen Flow Rate (L/ 3 min) (L/min) Oxygen Delivery Nasal Cannula Method Pulse Ox (%) 91 Pulse Rate (60-100 100 beats/min) 5th minute Oxygen Flow Rate (L/ 3 min) (L/min) Oxygen Delivery Nasal Cannula Method Pulse Ox (%) 89 Pulse Rate (60-100 102 H beats/min) 6th minute Oxygen Flow Rate (L/ 3 min) (L/min) Oxygen Delivery Nasal Cannula Method Pulse Ox (%) 90 Pulse Rate (60-100 103 H beats/min) Dyspnea Alejandro Scale ( 2 0-10) Exertion Alejandro Scale 13 (6-20) Post-test Oxygen Flow Rate (L/ 3 min) (L/min) Oxygen Delivery Nasal Cannula Method Pulse Ox (%) 93 Pulse Rate (60-100 85 beats/min) Full Laps Walked 15 Partial Lap, Number 36 of Tiles Walked Total Distance 921 Walked (ft) 08/29/24 14:16 Cardiopulmonary Services by Ruchi Marie Patient wears 2 lpm O2 at home at night with his BiPAP. 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 Initialized on 08/29/24 14:16 - END OF NOTE Interpretation Interpretation: The patient ambulated 921 feet over the course of 6 minutes beginning on room air without assistive devices. Pretesting oxygen saturation was noted to be 92% on room air. With ambulation, the patient desaturated on several occasions, requiring 3 L/min of supplemental oxygen to maintain appropriate exertional oxygen saturations. Recommendations Recommendations: 3 L/min of supplemental oxygen should be utilized with exertion.
== END | disposition home or self-care (01) ==
LOC: PSN 13:44
PROVIDERS: PCP Internal Medicine; Referring Provider Internal Medicine Critical Care Medicine; Visit Provider Internal Medicine Critical Care Medicine
DX: J96.11 Chronic respiratory failure with hypoxia (principal)
CPT/HCPCS: 94618

== ENCOUNTER 2024-09-06 09:48 | Outpatient (CLI) | payer MEDICARE, SELFPAY ==
[2024-09-06 10:49] LABS: Absolute Lymphocyte Count 1.68 X10^3/uL (0.83-4.51); Absolute Neutrophil Count 6.2 X10^3/uL (2.0-7.7); Basophil# 0.04 X10^3/uL; Basophil% 0.4 % (0-1); Eosinophil# 0.39 X10^3/uL; Eosinophils% 4.2 % (0-5); Hematocrit 36.7 % (40-54); Hemoglobin 12.2 g/dL (13.0-16.5); Lymphocyte # 1.68 X10^3/ul (0.83-4.51); Lymphocyte % 18.2 % (19-41); Mean Corp Hgb Conc 33.2 g/dL (32-36); Mean Corpuscular Volume 93.4 fL (80-94); Mean Platelet Vol. 10.7 fl (6.2-12.0); Monocyte# 0.86 X10^3/uL; Monocyte% 9.3 % (0-10); NRBC Flagged by Analyzer 0 % (0-5); Neutrophil # 6.23 X10^3/uL (2.7-7.7); Neutrophil % 67.7 % (47-70); Platelet Count 242 K/mm3 (150-450); RBC Distribution Width CV 12.5 % (11.6-14.6); RBC Distribution Width SD 42.8 fl (35.1-43.9); Red Blood Count 3.93 M/mm3 (4.6-6.2); White Blood Count 9.2 K/mm3 (4.4-11.0)
[2024-09-06 10:50] LABS: Erythrocyte Sedimentation Rate 16 mm/hr (0-20)
[2024-09-06 11:43] LABS: ALB/GLOB Ratio 1.2 RATIO (0.9-2.4); AST(SGOT) 15 U/L (<=37); Alanine Aminotransfer ALT/SGPT 10 U/L (<=46); Albumin, Serum 4.1 g/dL (3.4-4.8); Alkaline Phosphatase 64 U/L (40-129); Anion Gap 12 (5-15); BUN 25 mg/dL (4-19); BUN/Creat Ratio 14.5 RATIO (10-20); Calcium,Total 9.1 mg/dL (7.6-11.0); Carbon Dioxide 21.4 mmol/L (21.0-32.0); Chloride 103 mmol/L (98-108); EST Glomerular Filtration Rate 42 (>60); Ferritin 191 ng/mL (37-417); Globulin 3.5 g/dL (2.2-4.2); Glucose 159 mg/dL (70-99); Potassium 4.5 mmol/L (3.3-5.1); Protein, Total 7.6 g/dL (5.9-8.4); Sodium Level 136 mmol/L (133-145); Total Bilirubin 0.26 mg/dL (0.00-1.30); Vitamin B12 321 pg/mL (180-914)
[2024-09-06 12:06] LABS: CRP 5.26 mg/L (0.0-3.0); LDH 174 U/L (87-241)
[2024-09-11 09:08] LABS: ACCA 74 units (0-90); ALCA 4 units (0-60); AMCA 5 units (0-100); Albumin 3.5 g/dL (2.9-4.4); Alpha-1-Globulins 0.2 g/dL (0.0-0.4); Angiotensin Convert Enzyme 32 U/L (14-82); Carbohydrate Ag 19-9 2261 15 U/mL (0-35); Cytoplasmic Ab (C-ANCA) <1:20 titer (Neg:<1:20); Endomysial Antibody IgA Negative (Negative); Gamma Globulin 1.4 g/dL (0.4-1.8); Immunoglobulin A 319 mg/dL (61-437); Immunoglobulin E 18 IU/mL (6-495); Immunoglobulin G 1381 mg/dL (603-1613); Immunoglobulin M 60 mg/dL (15-143); PROEL- TOTAL PROTEIN 7.3 g/dL (6.0-8.5); Perinuclear Ab (P-ANCA) <1:20 titer (Neg:<1:20); QNTFERON TB Mitogen Value > 10.00 IU/mL (.); QNTFERON TB Nil Value 0.15 IU/mL (.); QNTFERON TB1+ Ag Value 0.12 IU/mL (.); QNTFERON TB2+ Ag Value 0.12 IU/mL (.); QNTIFERON TB Positive Criteria Negative (Negative); gASCA 32 units (0-50); t-Transglutaminase IgA <2 U/mL (0-3)
[2024-09-11 11:08] LABS: Clam <0.10 kU/L (Class 0); Codfish <0.10 kU/L (Class 0); Corn <0.10 kU/L (Class 0); Egg, White <0.10 kU/L (Class 0); Milk (Cow) <0.10 kU/L (Class 0); Peanut <0.10 kU/L (Class 0); SCALLOP <0.10 kU/L (Class 0); SESAME SEED <0.10 kU/L (Class 0); Shrimp <0.10 kU/L (Class 0); Soybean <0.10 kU/L (Class 0); Walnut, (Food) <0.10 kU/L (Class 0); Wheat <0.10 kU/L (Class 0)
== END 2024-09-06 23:59 | disposition home or self-care (01) ==
LOC: LAB 09:49
PROVIDERS: PCP Internal Medicine; Referring Provider Internal Medicine Gastroenterology; Visit Provider Internal Medicine Gastroenterology
DX: R10.10 Upper abdominal pain, unspecified (principal); D64.9 Anemia, unspecified
CPT/HCPCS: 36415; 80053; 82164; 82607; 82728; 82784; 82785; 83516; 83615; 84165; 84443; 85025; 85652; 86003; 86036; 86037; 86140; 86255; 86301; 86334; 86480; 86671

== ENCOUNTER → 2024-09-09 | Outpatient (CLI) | payer MEDICARE, SELFPAY ==
[2024-09-11 16:09] LABS: Calprotectin, Stool 30 ug/g (0-120); Pancreatic Elastase, Fecal 415 (>200)
== END | disposition home or self-care (01) ==
LOC: LABSPEC 14:23
PROVIDERS: PCP Internal Medicine; Referring Provider Internal Medicine Gastroenterology; Visit Provider Internal Medicine Gastroenterology
DX: K58.9 Irritable bowel syndrome, unspecified (principal); R10.10 Upper abdominal pain, unspecified
CPT/HCPCS: 82653; 83630; 83993; 87177; 87209; 87329

== ENCOUNTER → 2024-11-27 | Outpatient (CLI) | payer MEDICARE, SELFPAY ==
[2024-11-27 12:29] LABS: Hematocrit 36.1 % (40-54); Hemoglobin 12.1 g/dL (13.0-16.5); Mean Corp Hgb Conc 33.5 g/dL (32-36); Mean Corpuscular Volume 92.3 fL (80-94); Mean Platelet Vol. 10.9 fl (6.2-12.0); Platelet Count 233 K/mm3 (150-450); RBC Distribution Width CV 12.9 % (11.6-14.6); RBC Distribution Width SD 43.0 fl (35.1-43.9); Red Blood Count 3.91 M/mm3 (4.6-6.2); White Blood Count 8.7 K/mm3 (4.4-11.0)
[2024-11-27 12:59] LABS: Albumin, Serum 4.2 g/dL (3.4-4.8); Anion Gap 14 (5-15); BUN 27 mg/dL (4-19); BUN/Creat Ratio 15.2 RATIO (10-20); Calcium,Total 9.5 mg/dL (7.6-11.0); Carbon Dioxide 21.2 mmol/L (21.0-32.0); Chloride 103 mmol/L (98-108); Glucose 249 mg/dL (70-99); Potassium 4.4 mmol/L (3.3-5.1)
[2024-11-27 13:01] LABS: Creatinine, Urine (random) 205.00 mg/dL (39.00-259.00); Protein, Urine (Random) 41.5 mg/dL (0.0-12.0); Protein:Creat Ratio 202 mg/g CRE (0-200)
== END | disposition home or self-care (01) ==
LOC: MTLAB 09:45
PROVIDERS: PCP Internal Medicine; Referring Provider Internal Medicine Nephrology; Visit Provider Internal Medicine Nephrology
DX: N18.4 Chronic kidney disease, stage 4 (severe) (principal)
CPT/HCPCS: 36415; 80069; 82570; 84156; 85027